=== PATIENT | female | born 1945 ===

== ENCOUNTER 2020-04-01 17:31 | Emergency (ER) | payer MEDICARE, OTHER, SELFPAY ==
--- NOTE | ~2020-04-01 | XR_ITS ---
EXAMINATION: XR chest 1V portable INDICATION: Fall TECHNIQUE: Portable AP chest at 1743 hours COMPARISON: None available FINDINGS: The lungs are free of acute opacities. There is no pleural effusion or pneumothorax. The ca rdiomediastinal silhouette is normal. IMPRESSION: 1. No acute cardiopulmonary abnormality. Reviewed, dictated and finalized at location A.
[2020-04-01 17:28] VITALS: BP 146/63; PULSE 94; RESP 14; TEMP 36.2
--- NOTE | 2020-04-01 17:33 | ED_ITS ---
HPI - Head Injury General Chief complaint: Trauma Stated complaint: fall History of Present Illness HPI Narrative: Patient arrives via EMS after a fall down her front steps. She drank half a bottle of wine and as she tumbled down the steps she hit her head on the railing. She denies any loss of consciousness or any pain. A lot of her teeth been knocked out and her lip is cut and she is spitting blood. Complaint: head injury Onset (ago): hour(s) Arrival Conditions: other (No collar.) Mechanism of Injury: fall Place: home Loss of Consciousness: no Location of injury: face Severity: moderate Other Injuries: upper extremity Related Data Allergies Allergy/AdvReac Type Severity Reaction Status Date / Time Penicillins Allergy Unknown Verified 04/01/20 17:43 Review of Systems Review of Systems: Narrative: Limited review of systems because she is coughing and spitting blood, and intoxicated. [facility] Social History Social History (Updated 04/01/20 @ 17:35 by Trisha Weldon MD) Alcohol intake: current Gender identity (if verbalized by the patient): Female Exam Narrative: Exam Narrative: GENERAL: Obese woman covered in blood spitting blood facial laceration missing teeth. HEAD: Normocephalic, atraumatic. Through and through lip laceration on the left EYES: PERRLA and EOMI. ENT: Nares clear, no rhinorrhea or epistaxis. Mucous membranes moist. Multiple missing teeth and bleeding in the mouth NECK: Supple. CHEST: Diffuse rales. no respiratory distress. HEART: Regular rate and rhythm. No murmur heard. Normal peripheral pulses. ABDOMEN: Soft, nontender, nondistended, normal active bowel sounds. EXTREMITIES: Right arm bruised and swollen. SKIN: Warm, dry, no rash. NEURO: No focal deficits. Alert and oriented x3. PSYCH: Normal mood and affect. Const: General: no acute distress and alert Orientation/consciousness: patient oriented x3 Course Course Emergency Course: Evaluated the patient and deemed to be a trauma will transfer to [facility] to the ED. Consultations Consultation #1: Called slow access line and talked directly to the ER attending. Dr. Kaplan accepts Date: 04/01/20 Time: 17:38 Vital Signs Vital signs: Vital Signs Temperature 97.2 F L 04/01/20 17:28 Pulse Rate 94 04/01/20 17:28 Respiratory Rate 14 04/01/20 17:28 Blood Pressure 146/63 H 04/01/20 17:28 Temperature 97.2 F L 04/01/20 17:28 Pulse Rate 99 04/01/20 17:51 Respiratory Rate 18 04/01/20 17:51 Blood Pressure 132/63 04/01/20 17:51 Pulse Oximetry 92 04/01/20 17:51 MDM - Head Injury MDM Narrative Medical decision making narrative: Multiple trauma needs to go to the trauma center. We will transfer. Imaging Data Radiologist's impression: ITS Impressions Chest X-Ray 04/01/20 17:57 IMPRESSION: 1. No acute cardiopulmonary abnormality. Discharge Plan Discharge Clinical Impression: Multiple trauma Patient Disposition: Acute Care Hospital Condition: Serious Discharge Date/Time: 04/01/20 18:23
[2020-04-01 17:39] VITALS: PULSE 92
[2020-04-01 17:44] VITALS: BP 146/63; PULSE 93; RESP 16; O2SAT 95
--- NOTE | 2020-04-01 17:48 | PC.NURSE ---
GENOVEVA called and talked to Jossie. Report given at this time. All questions answered at this time.
[2020-04-01 17:51] VITALS: BP 132/63; PULSE 99; RESP 18; O2SAT 92
== END 2020-04-01 18:23 | disposition short-term general hospital (02) ==
LOC: ANHED 17:44
PROVIDERS: Emergency Provider Emergency Medicine
DX: S01.511A Laceration without foreign body of lip, initial encounter (principal); W10.9XXA Fall (on) (from) unspecified stairs and steps, initial encounter
CPT/HCPCS: 71045; 99285; L0140